=== PATIENT | male | born 1975 | race Caucasian/White ===

== ENCOUNTER → 2018-11-09 08:40 | Outpatient (CLI) | payer OTHER, SELFPAY ==
[2018-10-03 10:25] VITALS: BMI 53.8
--- NOTE | 2018-11-09 08:42 | ECHOCS_ITS ---
Reason For Study: EDEMA, AVR Procedure This was a 2D Doppler, Color Flow transthoracic echocardiogram. The study was technically difficult. Contrast injection was performed. Exam performed in department. Left Ventricle Normal LV size. Concentric left ventricular hypertrophy. The estimated ejection fraction is 55 %. No evidence for diastolic dysfunction. No regional wall motion abnormalities noted. Right Ventricle Normal RV size. Normal systolic function. Atria Normal left atrium. Normal right atrium. No doppler evidence for ASD. Mitral Valve Mild mitral valve stenosis. No mitral valve insufficiency. Tricuspid Valve There is no tricuspid stenosis. Unable to estimate RV systolic pressure due to inadequate jet, pulmonary artery pressure probably normal. Aortic Valve Prosthetic aortic valve. There is no aortic stenosis. No aortic valve insufficiency. Pulmonic Valve There is no pulmonic valvular stenosis. No pulmonic valve insufficiency. Great Vessels Normal aortic root. Pericardium/Pleural Trivial pericardial effusion. Medication 22 gauge I.V. with prn adaptor inserted into right arm. Attempts X6 for IV access ( access in Rt shoulder for Definity). Diluted definity 3ml given slow IV push to enhance endocardial definition. MMode/2D Measurements & Calculations LVIDd: 5.3 cm IVSd: 1.6 cm LVOT diam: 2.1 cm LVIDs: 4.1 cm LVPWd: 1.4 cm RVDd: 4.7 cm FS: 22.8 % LVOT area: 3.6 cm2 Ao root diam: 2.8 cm LAV(MOD-bp): 70.6 ml LVAd ap4: 49.1 cm2 LAV(MOD-bp) Indexed: 24.1 ml/m2 EDV(MOD-sp4): 189.9 ml LAV(MOD-sp2): 69.5 ml EDV(sp4-el): 196.1 ml LAV(MOD-sp4): 70.2 ml LVAs ap4: 33.1 cm2 ESV(MOD-sp4): 101.8 ml ESV(sp4-el): 102.9 ml EF(MOD-sp4): 46.4 % EF(sp4-el): 47.5 % SV(MOD-sp4): 88.1 ml SV(sp4-el): 93.2 ml LA A4 area: 22.8 cm2 LA dimension(2D): 4.5 cm RA A4 area: 19.0 cm2 Time Measurements MV dec time: 0.26 sec Doppler Measurements & Calculations MV E max sharif: 159.1 cm/sec Lat Peak E' Sharif: 10.1 cm/sec Med Peak E' Sharif: 8.0 cm/sec MV A max sharif: 137.7 cm/sec E/E' lat: 15.7 E/E' med: 19.9 MV E/A: 1.2 MV V2 max: 169.8 cm/sec Ao V2 max: 252.5 cm/sec LV V1 max: 94.2 cm/sec MV max P.6 mmHg Ao max P.5 mmHg LV V1 max P.6 mmHg MV V2 mean: 108.9 cm/sec Ao V2 mean: 185.2 cm/sec LV V1 mean P.2 mmHg MV mean P.3 mmHg Ao mean P.2 mmHg LV V1 mean: 71.3 cm/sec MV V2 VTI: 47.9 cm Ao V2 VTI: 44.9 cm LV V1 VTI: 20.4 cm MVA(VTI): 1.5 cm2 FROILAN(I,D): 1.6 cm2 FROILAN(V,D): 1.3 cm2 SV(LVOT): 73.1 ml PA V2 max: 125.0 cm/sec MV P1/2t-pr_phl: 89.8 msec Interpretation Summary Diluted definity 3ml given slow IV push to enhance endocardial definition. The estimated ejection fraction is 55 %. No evidence for diastolic dysfunction. Prosthetic aortic valve There is no aortic stenosis. No aortic valve insufficiency. The study was technically difficult. Ordering Physician: Aniket Thomas Referring Physician: LILIAN ROSALES Performed By: Radha Gooden, ROB, RVT
== END ==
PROVIDERS: Family Provider Physician Assistant; PCP Physician Assistant; Referring Provider Specialist; Visit Provider Specialist
DX: Z95.2 Presence of prosthetic heart valve (principal); R60.9 Edema, unspecified
CPT/HCPCS: 93306; Q9957; A4216; C8929

== ENCOUNTER → 2020-06-30 08:39 | Outpatient (CLI) | payer MEDICAID, SELFPAY ==
[2020-06-16 11:05] VITALS: BMI 59.2
--- NOTE | 2020-06-30 13:26 | PFT ---
INTRODUCTION: The patient is a 44-year-old male that presents for pulmonary function studies secondary to a diagnosis of shortness of breath. Respiratory therapy reports good patient effort. Bronchodilators were used during testing. INTERPRETATION: Forced expiration spirometry demonstrates no evidence of a large airways obstructive ventilatory defect. There was no significant response to aerosolized bronchodilators. Spirograms are of good quality and plateau normally. Body plethysmography was performed and reveals a decreased TLC to 4.24 L, 56% of predicted, indicative of a severe restrictive ventilatory impairment. Diffusing capacity by single breath CO is reduced to 57% of predicted. IMPRESSION: Severe restrictive ventilatory defect with moderate reduction in diffusing capacity.
== END ==
PROVIDERS: PCP Physician Assistant; Referring Provider Internal Medicine Critical Care Medicine; Visit Provider Internal Medicine Critical Care Medicine
DX: F17.210 Nicotine dependence, cigarettes, uncomplicated (principal)
CPT/HCPCS: 94060; 94726; 94729; 94762

== ENCOUNTER → 2020-07-01 10:34 | Outpatient (CLI) | payer MEDICAID, SELFPAY ==
[2020-06-16 11:05] VITALS: BMI 59.2
== END ==
PROVIDERS: PCP Physician Assistant; Visit Provider Internal Medicine Critical Care Medicine
DX: F17.210 Nicotine dependence, cigarettes, uncomplicated (principal)
CPT/HCPCS: 94762

== ENCOUNTER → 2020-07-02 12:53 | Outpatient (CLI) | payer MEDICAID, SELFPAY ==
[2020-06-16 11:05] VITALS: BMI 59.2
[2020-07-02 13:37] VITALS: PULSE 102; PULSE 109; PULSE 110; PULSE 126; PULSE 63; PULSE 67; PULSE 70; PULSE 92; O2SAT 88; O2SAT 94; O2SAT 95; O2SAT 96; O2SAT 97
--- NOTE | 2020-07-02 13:41 | CPS ---
Patient does not wear O2 at home. At the 2nd minute, SpO2 88%, HR 126. Stopped and placed patient on 2 lpm O2. Recovered SpO2 96%, patient was able to walk the remainder of the test on 2 lpm O2. Edelmira Lees HEAD BAKER called who stated patient had follow up on July 13 so he was good to go home. Explained O2 use to patient while exerting and importance of getting a Pulse Oximeter for monitoring. Patient verbalized understanding of all explanations and did not have any further questions at this time. Results faxed to [place] office.
--- NOTE | 2020-07-03 13:27 | PCM.PSN.6M ---
PSN 6 Minute Walk Test - 6 Minute Walk Test 6 Minute Walk Test: 6 Minute Walk Test PSN:6-Minute Walk Test Start: 07/02/20 13:36 Freq: Status: Active Protocol: RESP.6MINW Document 07/02/20 13:37 ADALGUDELIA (Rec: 07/02/20 13:46 ASA [id number]) 6 Minute Walk Test Date Performed 07/02/20 Time Performed 13:00 Height 6 ft 1 in Weight: 439 lb Weight in Pounds 439.[address]: Benjy Salvador Assistive device used: None Pre-test Oxygen Delivery Method Room Air Pulse Ox (%) 95 Pulse Rate (60-100 beats/min) 63 Dyspnea Qi Scale (0-10) 0.5 Exertion Qi Scale (6-20) 6 1st minute Oxygen Delivery Method Room Air Pulse Ox (%) 94 Pulse Rate (60-100 beats/min) 67 2nd minute Oxygen Delivery Method Room Air Pulse Ox (%) 88 Pulse Rate (60-100 beats/min) 126 H 3rd minute Oxygen Flow Rate (L/min) (L/min) 2 Oxygen Delivery Method Nasal Cannula Pulse Ox (%) 95 Pulse Rate (60-100 beats/min) 92 4th minute Oxygen Flow Rate (L/min) (L/min) 2 Oxygen Delivery Method Nasal Cannula Pulse Ox (%) 96 Pulse Rate (60-100 beats/min) 102 H 5th minute Oxygen Flow Rate (L/min) (L/min) 2 Oxygen Delivery Method Nasal Cannula Pulse Ox (%) 94 Pulse Rate (60-100 beats/min) 110 H 6th minute Oxygen Flow Rate (L/min) (L/min) 2 Oxygen Delivery Method Nasal Cannula Pulse Ox (%) 94 Pulse Rate (60-100 beats/min) 109 H Dyspnea Qi Scale (0-10) 3 Exertion Qi Scale (6-20) 12 Post-test Oxygen Flow Rate (L/min) (L/min) 2 Oxygen Delivery Method Nasal Cannula Pulse Ox (%) 97 Pulse Rate (60-100 beats/min) 70 Full Laps Walked 15 Partial Lap, Number of Tiles Walked 10 Total Distance Walked (ft) 895 07/02/20 13:41 Cardiopulmonary Services by Claudia Vargas Patient does not wear O2 at home. At the 2nd minute, SpO2 88%, HR 126. Stopped and placed patient on 2 lpm O2. Recovered SpO2 96%, patient was able to walk the remainder of the test on 2 lpm O2. Edelmira Lees WIRELESS TECHNICIAN called who stated patient had follow up on July 13 so he was good to go home. Explained O2 use to patient while exerting and importance of getting a Pulse Oximeter for monitoring. Patient verbalized understanding of all explanations and did not have any further questions at this time. Results faxed to [place] office. Initialized on 07/02/20 13:41 - END OF NOTE - Interpretation Interpretation: The patient ambulated 895 feet over the course of 6 minutes beginning on room air without assistive devices or breaks. Pretesting oxygen saturation was noted to be 95% on room air. With ambulation, the sue oxygen saturation was 88% at minute 2 of testing. 2 L/min of supplemental oxygen was applied and the patient was able to complete the remainder of the test while maintaining appropriate oxygen saturations. - Recommendations Recommendations: 2 L/min of supplemental oxygen should be utilized with exertion.
== END ==
PROVIDERS: PCP Physician Assistant; Referring Provider Internal Medicine Critical Care Medicine; Visit Provider Internal Medicine Critical Care Medicine
DX: F17.210 Nicotine dependence, cigarettes, uncomplicated (principal)
CPT/HCPCS: 94618

== ENCOUNTER → 2020-07-22 20:33 | Outpatient (CLI) | payer MEDICAID, SELFPAY ==
[2020-07-13 08:08] VITALS: BMI 59.3
== END ==
PROVIDERS: PCP Physician Assistant; Visit Provider Nurse Practitioner Acute Care
DX: G47.33 Obstructive sleep apnea (adult) (pediatric) (principal)
CPT/HCPCS: 95811

== ENCOUNTER → 2020-07-27 12:28 | Outpatient (CLI) | payer MEDICAID, SELFPAY ==
[2020-07-13 08:08] VITALS: BMI 59.3
--- NOTE | 2020-07-27 12:30 | CT_ITS ---
STUDY: CT CHEST WITHOUT CONTRAST REASON FOR EXAM: Male, 44 years old. Chest pain/pressure RADIATION DOSAGE (If Supplied By Facility): CTDIvol = ( 20.15 ) mGy, DLP = ( 712.42 ) mGycm TECHNIQUE: Transaxial imaging was performed without the administration of intravenous contrast material. Individualized dose optimization techniques were used for this CT. COMPARISON: None. FINDINGS: Lungs are expanded with subtle interstitial edema and groundglass opacifications in both lung salmon. There is no organized infiltrate or effusion. No suspicious noncalcified mass or nodule Sternal cerclage wires are present from a prior sternotomy. Normal mediastinum. Normal hilar regions. Normal unenhanced pulmonary arteries. Normal aorta arch and descending thoracic aorta. Normal osseous structures. There is no demonstrated abnormality of the visualized upper abdomen. CT/Chest without Contrast IMPRESSION: Previous sternotomy Interstitial edema in both lung salmon with scattered groundglass opacifications also noted in both lung salmon. Findings suggest pulmonary vascular congestion or small airways inflammation. No organized infiltrate or effusion. Electronically Signed: Dmitri Pastrana MD at 13:52 EDT , Service support ,
== END ==
PROVIDERS: PCP Physician Assistant; Referring Provider Nurse Practitioner Acute Care; Visit Provider Nurse Practitioner Acute Care
DX: J98.4 Other disorders of lung (principal)
CPT/HCPCS: 71250